=== PATIENT | male | born 1955 | race Caucasian/White ===

== ENCOUNTER 2016-08-25 05:53 | Inpatient (IN) | payer BC ==
--- NOTE | 2016-08-15 20:20 | HP ---
HISTORY AND PHYSICAL: DATE OF SURGERY/ADMISSION: 08/25/16 PROCEDURE: Right knee replacement. CHIEF COMPLAINT: Right knee pain. HISTORY OF PRESENT ILLNESS: The patient is a very pleasant 60-year-old man who presents today for a history and physical examination prior to undergoing a left total knee arthroplasty on 08/25/[address] Cristobal Mg. In brief, the patient has end-stage osteoarthritis of his right knee and has failed conservative treatment such as NSAIDs, injections, and physical therapy. He has elected to undergo a total knee replacement. PAST MEDICAL HISTORY: 1. Elevated cholesterol. 2. Hypertension. 3. Osteoarthritis. PAST SURGICAL HISTORY: 1. Laminectomy at L3-L4. 2. Vasectomy. MEDICATIONS: 1. Mobic 15 mg 1 tablet by mouth for pain. 2. Pravastatin 20 mg 1 tablet by mouth q.h.s. 3. Fish oil concentrate 1000 mg 1 tablet by mouth b.i.d. 4. Glucosamine and chondroitin 150 mg complex 1 tablet by mouth daily. 5. Aspirin 81 mg 1 tablet daily. 6. Motrin 200 mg p.o. p.r.n. 7. Losartan 50 mg p.o. q.a.m. ALLERGIES: PENICILLIN as a child causing a rash. FAMILY MEDICAL HISTORY: Mother with Parkinson's. Father with kidney cancer. No history of MIs, bleeding disorders, or DVTs in family. SOCIAL HISTORY: No tobacco use. Positive for alcohol use. Currently lives with in a ranch house with everything accessible on one floor. REVIEW OF SYSTEMS: General: Negative for fevers, chills, or night sweats. No difficulty with anesthesia. HEENT: Negative for headache, lightheadedness, or syncopal episodes. Integumentary: Negative for abrasions or lesions. No difficulty with wound healing. Cardiac: Negative for chest pain, palpitations , or edema. Positive for hypertension. Negative for MD. Pulmonary: Negative for shortness of breath, chronic cough, or COPD. GI: Negative for nausea, vomiting, constipation, diarrhea, or GERD. : Negative for nocturia, urinary frequency, or urgency. No history of UTIs or kidney problems. Musculoskeletal : Positive for right knee pain. Positive for left hip pain. Negative for intermittent back pain. Neurologic: Negative for paresthesias or numbness. No history of seizure, stroke, or epilepsy. Endocrine: Negative for diabetes or thyroid issues. Hematologic: Negative for easy bruising or anemia. No history of DVT or PE. Infectious Disease: Negative for MRSA, hepatitis C, or HIV. PHYSICAL EXAMINATION GENERAL: Well appearing, in no acute distress. Alert and oriented x3. VITAL SIGNS: Pulse in the 70s, blood pressure 128/82. Height 72 inches, weight 230 pounds. HEENT: Normocephalic, atraumatic. EOMI. PULMONARY: Lungs are clear to auscultation. No crackles, rhonchi, or wheezes. CARDIAC: Regular rate and rhythm. No murmurs, gallops, or rubs. No edema, bilateral lower extremities. ABDOMEN: Soft, nontender, nondistended. Negative CVA tenderness. NEUROLOGIC: Alert and oriented x3. Cranial nerves grossly intact. Sensation intact to light touch, bilateral lower extremities. MUSCULOSKELETAL: Posterior tibial pulses 2+ bilaterally. No edema bilaterally. No effusion noted, bilateral knees. Range of motion of right knee to 0 to 110 degrees. STUDIES: X-rays showing osteoarthritis of the right knee dated 05/28/16. Preoperative evaluation performed by Dr. Jones on 07/30/16 where the patient was cleared for surgery. IMPRESSION: Right knee osteoarthritis. PLAN: The patient is scheduled to undergo a right total knee replacement on by Dr. Cristobal Mg. He will follow up postoperatively with Dr. Mg in approximately 3 to 4 weeks' timeframe. The surgery was discussed in detail as well as the surgical risks and complication sheet, which was signed by the patient. Coumadin was sent to the patient's pharmacy for postoperative DVT management. He will call us if any questions or concerns do arise. The patient will be seen at [facility] today for repeat laboratory work, urinalysis, chest x-ray, and EKG. PONCHO RÍOS [id number]/[facility] #: [id number] ADE
[2016-08-25] MEDS ORDERED: Buffered Lidocaine 1% SYRIN* 3 ML/SYR SYRINGE INTRADERM ONE (06:00)
[2016-08-25] MEDS ORDERED: Famotidine IV* 10 MG/ML 2 ML (20 mg) IV ONE (06:00)
[2016-08-25] MEDS ORDERED: Dexamethasone IV* 4 MG/ML 1 ML (4 MG) IV SLOW PU ONE (06:00)
[2016-08-25] MEDS ORDERED: Dexamethasone IV* 4 MG/ML 1 ML (4 MG) ONE (06:10)
[2016-08-25] MEDS ORDERED: Famotidine IV* 10 MG/ML 2 ML (20 mg) ONE (06:10)
[2016-08-25] MEDS ORDERED: Clindamycin 900 MG IVPREMIX(* 900 MG/50 ML SDV IV ONE (06:10)
[2016-08-25 06:47] LABS: Hematocrit 45 % (42-52); Hemoglobin 15.1 g/dl (14.0-18.0); Mean Corpuscular HGB Conc 34 g/dl (31-36); Mean Corpuscular Hemoglobin 29 pg (27-31); Mean Corpuscular Volume 86 fL (80-94); Mean Platelet Volume 9 um3 (7.4-10.4); Red Blood Count 5.22 10^6/ul (4.0-5.4); Red Cell Distribution Width 14 % (10.5-15)
[2016-08-25] MEDS ORDERED: Midazolam* 1 MG/ML 5 ML VIAL (5 MG) ONE ×2 (07:23→07:48)
[2016-08-25] MEDS ORDERED: Propofol* 10 MG/ML 20 ML BTL IV PUSH ONE (07:23)
[2016-08-25] MEDS ORDERED: Ondansetron INJ* 2 MG/ML VIAL ONE ×2 (07:23→13:53)
[2016-08-25] MEDS ORDERED: Morphine PF AMP (0.5MG/ML)* 5 MG/10 ML AMP ONE (07:23)
[2016-08-25] MEDS ORDERED: KETAMINE HCL* 50 MG/ML 10 ML VIAL ONE (07:23)
[2016-08-25] MEDS ORDERED: Bupivacaine 0.5% SDV PF* 30 ML VIAL ONE (07:31)
[2016-08-25] MEDS ORDERED: Phenylephrine IV* 40 MCG/ML 10 ML SYRINGE ONE ×2 (07:54→07:55)
[2016-08-25] MEDS ORDERED: Phenylephrine INJ* 10 MG/ML 1 ML VIAL (10 MG) ONE (07:55)
[2016-08-25] MEDS ORDERED: Lactated Ringers 500 ml BAG* 500 ML IV PRN (08:28)
[2016-08-25] MEDS ORDERED: oxyCODONE/Acetamin 5/325 MG* TAB PO PRN ×2 (08:28)
[2016-08-25] MEDS ORDERED: Naloxone* 0.4 MG/ML 1 ML VIAL IV PRN (08:28)
[2016-08-25] MEDS ORDERED: fentaNYL* 50 MCG/ML 2 ML VIAL (100 MCG VIAL) IV PRN (08:28)
[2016-08-25] MEDS ORDERED: Nalbuphine* 20 MG/ML 1 ML VIAL IV PRN ×2 (08:28)
[2016-08-25] MEDS ORDERED: Ondansetron INJ* 2 MG/ML VIAL IV PRN (08:28)
[2016-08-25] MEDS ORDERED: Ropivacaine* 300 MG in NS 0.9% 250 ML* 240 ML EPIDURAL SCH (09:00)
[2016-08-25] MEDS ORDERED: Morphine INJ* 10 MG/ML 1 ML SYRINGE IV PRN (10:12)
[2016-08-25] MEDS ORDERED: Acetaminophen TAB* 325 MG PO PRN (10:12)
[2016-08-25] MEDS ORDERED: diPHENhydraMINE IV* 50 MG/ML 1 ml VIAL (BENADRYL) IV PRN (10:12)
[2016-08-25] MEDS ORDERED: Bisacodyl SUPP* 10 MG SUPP PR PRN (10:12)
[2016-08-25] MEDS ORDERED: LACTULOSE* 30 ML UDC PO PRN (10:12)
[2016-08-25] MEDS ORDERED: Polyethylene Glycol 3350* 17 GM PACKET PO PRN (10:12)
--- NOTE | 2016-08-25 10:53 | RAD ---
INDICATION: Total knee replacement COMPARISON: May 28, 2016 TECHNIQUE: Portable AP and crosstable lateral views were obtained. FINDINGS: There is right knee arthroplasty. Both femoral and tibial components appear well seated there are anterior skin bhavin. IMPRESSION: POSTOPERATIVE RIGHT KNEE ARTHROPLASTY
[2016-08-25] MEDS ORDERED: Nalbuphine* 20 MG/ML 1 ML VIAL ONE (12:44)
[2016-08-25] MEDS: D5W 1/2 NS 1000 ML BAG* 1,000 ML IV SCH ×2 (13:34→22:31)
[2016-08-25] MEDS ORDERED: Clindamycin 600 MG IVPREMIX(* 600 MG/50 ML SDV IV SCH (14:30)
[2016-08-25] MEDS ORDERED: Scopolamine 1.5 mg* PATCH TRANSDERM PRN (15:48)
[2016-08-25] MEDS ORDERED: DiMENhydriNATE IV* 50 MG/ML VIAL IV PUSH PRN (15:50)
[2016-08-25] MEDS: Clindamycin 600 MG IVPREMIX(* 600 MG/50 ML SDV IV SCH (16:42)
[2016-08-25] MEDS ORDERED: Warfarin TAB(*) 10 MG PO ONE (17:00)
[2016-08-25] MEDS: Docusate CAP* 100 MG PO SCH (20:15)
[2016-08-25] MEDS: Magnesium Hydroxide LIQ* 30 ML UDC PO SCH (20:17)
[2016-08-26] MEDS: Clindamycin 600 MG IVPREMIX(* 600 MG/50 ML SDV IV SCH ×2 (00:42→07:24)
--- NOTE | 2016-08-26 01:01 | OP ---
DATE OF OPERATION: 08/25/16 - ROOM #341 DATE OF : 53 SURGEON: Cristobal Mg MD RN ONCOLOGY RESEARCH: Brittany Ayala RPA ANESTHESIOLOGIST: Chris Gonzalez MD ANESTHESIA: Epidural and sedation. PRE-OP DIAGNOSIS: Osteoarthritis, right valgus knee. POST-OP DIAGNOSIS: Osteoarthritis, right valgus knee. OPERATIVE PROCEDURE: Right total knee arthroplasty. INDICATIONS: Mr. Desir is a 60-year-old male who has a long history of troubles with his right knee. He had initially been doing well with conservative treatment but has had more limitations and his 5 or 6 months ago underwent a knee arthroplasty as well. He reports he can no longer keep up with her. I discussed with him that total knee arthroplasty should work well to decrease his pain and improve his function. Risks of surgery such as infection, scar formation, stiffness, DVT, pulmonary embolism, hardware failure , and continued knee pain were some of the risks discussed. He had been declared medically optimized and wished to proceed. ESTIMATED BLOOD LOSS: Minimal. COMPLICATIONS: None. HARDWARE: Lorraine Persona, G tibia, 9 femur, 38-mm patella, 10-mm polyethylene spacer. DESCRIPTION OF PROCEDURE: The patient was brought to the OR and epidural anesthesia was placed. Rosen catheter was also placed. Tourniquet was placed over the proximal right thigh and was used during the case. The total tourniquet time would be approximately 85 minutes. Right knee was prepped and then draped. Esmarch was used to exsanguinate the leg and the tourniquet was raised. Midline incision was made beginning 3 or 4 cm above the superior pole of patella and carried downwards towards the medial side of the tibial tubercle. Incision was carried down through the skin and subcutaneous tissues. Extensor mechanism was exposed and a sharp parapatellar arthrotomy was made, quite a bit of clear yellowish joint fluid was encountered. Fat pad was sharply excised and the soft tissues were softly elevated from the medial side of the tibia. Patella had extensive wear towards the lateral side but the medial side did not have that kind of wear, measured approximately 26 mm in thickness. Initially, a 6-mm cut was taken and a secondary 4 mm cut to try and smooth out the patella and a nice patellar cut was finally obtained. Patella was then easily subluxated laterally and the knee was flexed out. Nice exposure of the distal femur was obtained. Step drill was used to open the femoral canal and an intramedullary guide was placed. Guide was adjusted until it was parallel with the epicondyles and then this was then pinned into place. This has been set at 4 degrees and I actually had expected that it would line up to take less from the lateral side and while it was, it was still a little bit more than I was expecting. Nonetheless, I trusted the instrumentation and the distal femoral cutting guide was then pinned into place. Intramedullary guide was removed. Distal femoral cut was taken and it appeared a nice cut was obtained. He was tight with flexion so the sizer was very difficult to seat. So, a decision was made to move forward to the tibia as this will give a small room to maneuver. Step drill was used to open the tibial canal and the intramedullary guide was placed. Outrigger was adjusted until it would appear to take 2 mm from the worn medial side and proximal tibial cutting guide was then pinned into place. Proximal tibial cut was taken. Great care was taken at the plunge posteriorly as I had not gotten as much of the forward delivery of the tibia as I normally do. So, I had to come back a few times to finish off the cut along the back side once the main piece had been removed. Once the piece had been removed, however, the femoral sizer was then easily seated and the size 4 just over a 9. Holes were drilled and a 9 cutting block was placed. This had to be moved upwards 2 mm so it would not notch the anterior cortex, and the anterior and posterior femoral cuts followed by the chamfer cuts were all taken. Attention was returned to the tibia. This gave better exposure so that I could finish my cut towards the postero-lateral corner as well as the posterior aspect of the tibia. Spacer block was then placed and he was perfect with a 10 block coming out in full extension and being little bit loose in flexion. Alignment pema also appeared to run perfectly along the anterior spine of the tibia. Tibial was sized and it sized nicely at a G. G was pinned into place and proximal tibial was drilled and then punched. Femur was then placed with a 9 and the stud holes were drilled and the notch cut was taken. With flexion and extension, patellar tracking was fine and the patella sized at a 38 and holes were drilled and trial was snapped into place. Patellar tracking was still perfect. Trial instrumentation was removed and the knee was copiously pulse lavaged. Cement was being prepared. Tibial followed by femur and patella were all cemented into place. Excess cement was removed and the cement was allowed to harden. He was again trialed with a 10 and had the same wonderful motion and stability. Knee was copiously pulse lavaged again and searched again for extra pieces of cement and again a few small pieces were found. 10 polyethylene was then snapped into place. Motion was again checked and it was still smooth and he came out nicely into full extension. It was stable throughout. Knee was again copiously pulse lavaged and parapatellar arthrotomy was repaired using interrupted #1 Vicryl sutures. Tourniquet was let down and no significant bleeding was encountered. Subcutaneous tissues were reapproximated with 2-0 Vicryl, skin was closed using bhavin. Sterile dressing was applied. Cryo/Cuff was also applied. The patient was then awake and stable on transfer to the recovery room. [id number]/[facility] #: [id number] ADE
[2016-08-26 05:56] LABS: Hematocrit 37 % (42-52); Hemoglobin 11.9 g/dl (14.0-18.0)
[2016-08-26] MEDS ORDERED: oxyCODONE/Acetamin 5/325 MG* TAB PO PRN (06:00)
[2016-08-26] MEDS ORDERED: Ondansetron INJ* 2 MG/ML VIAL IV PRN (06:00)
[2016-08-26] MEDS ORDERED: Ondansetron TAB* 4 MG PO PRN (06:00)
[2016-08-26 06:12] LABS: BUN/Creatinine Ratio 19.8 (8-20); EGFR African American 96.6 (>60); EGFR Non-African American 75.1 (>60); Potassium 4.3 mmol/L (3.5-5.0)
[2016-08-26] MEDS: D5W 1/2 NS 1000 ML BAG* 1,000 ML IV SCH (06:43)
[2016-08-26] MEDS: Docusate CAP* 100 MG PO SCH ×2 (07:52→23:23)
[2016-08-26] MEDS: Losartan TAB* 25 MG PO SCH (07:52)
[2016-08-26] MEDS: Vitamin THERAPEUTIC TAB PO SCH (07:52)
[2016-08-26] MEDS: oxyCODONE TAB* 5 MG TAB PO PRN ×4 (07:53→23:24)
[2016-08-26] MEDS: Magnesium Hydroxide LIQ* 30 ML UDC PO SCH ×2 (07:53→23:23)
--- NOTE | 2016-08-26 08:06 | PN ---
Progress Note - Progress Note SOAP: Subjective: []Patient seen at bedside. Doing well. Pain well managed. Denies SOB, chest pain or dizziness. No other complaints. Objective: [] Vital Signs Temp 97.9 F 08/26/16 07:29 Pulse 85 08/26/16 07:29 Resp 16 08/26/16 07:58 BP 132/74 08/26/16 07:29 Pulse Ox 100 08/26/16 07:29 Intake & Output 08/25/16 08/26/16 08/26/16 18:59 06:59 18:59 Intake Total 3690 1749 Output Total 1570 1000 Balance 2120 749 Intake: IV Fluids 3450 975 CLINDAMYCIN 900 MG 50 D5W 1/2 NS 975 LR 3400 IVPB 54 ABX - CLINDAMYCIN 54 Oral 240 720 Output: Rosen 1250 1000 Residual 20 Rosen 16 Fr 20 Emesis 300 Laboratory Results - last 24 hr 08/26/16 08/26/16 08/26/16 05:32 05:32 05:32 Hgb 11.9 L Hct 37 L INR (Anticoag Therapy) 1.08 Sodium 134 Potassium 4.3 Chloride 102 Carbon Dioxide 25 Anion Gap 7 BUN 20 Creatinine 1.01 Est GFR ( Amer) 96.6 Est GFR (Non-Af Amer) 75.1 BUN/Creatinine Ratio 19.8 Glucose 121 H Calcium 8.0 L Right knee MINGO C/D/I calf mild tenderness, no edema, Dago's negative +DF/PF right foot neuro intact distally Assessment: []s/p Right total knee arthroplasty POD#1 Plan: []PT/OT WBAT Coumadin/ SCDs
[2016-08-26] MEDS: Heparin VIAL(*) 5000 UNITS/ML VIAL (FIVE THOUSAND) SUBCUT SCH ×2 (11:12→23:25)
[2016-08-26] MEDS: oxyCODONE/Acetamin 5/325 MG* TAB PO PRN ×2 (11:12→15:25)
[2016-08-26] MEDS ORDERED: Warfarin TAB(*) 4 MG PO ONE (17:00)
[2016-08-26] MEDS: Ketorolac INJ* 30 MG/ML 1 ML VIAL IV PUSH SCH (19:40)
[2016-08-27] MEDS: Ketorolac INJ* 30 MG/ML 1 ML VIAL IV PUSH SCH (02:31)
[2016-08-27] MEDS: oxyCODONE TAB* 5 MG TAB PO PRN ×2 (04:47→12:51)
[2016-08-27 07:00] LABS: Hematocrit 34 % (42-52); Hemoglobin 11.4 g/dl (14.0-18.0)
[2016-08-27] MEDS: Docusate CAP* 100 MG PO SCH (09:07)
[2016-08-27] MEDS: Vitamin THERAPEUTIC TAB PO SCH (09:07)
[2016-08-27] MEDS: Losartan TAB* 25 MG PO SCH (09:07)
[2016-08-27] MEDS: Magnesium Hydroxide LIQ* 30 ML UDC PO SCH (09:07)
[2016-08-27] MEDS: oxyCODONE/Acetamin 5/325 MG* TAB PO PRN (09:07)
[2016-08-27] MEDS: Heparin VIAL(*) 5000 UNITS/ML VIAL (FIVE THOUSAND) SUBCUT SCH (09:09)
--- NOTE | 2016-08-27 11:36 | PN ---
Progress Note - Progress Note Note: Patient was seen this am by Dr. Mg. He is doing very well and has mastered his PT goals and would like to go home today. OK with Dr. Mg. s/p RTK arthroplasty POD#2 Discharge home on Coumadin, has Percocet rx at home, INR draw tomorrow. Shower in 2 days Home health nurse to remove bhavin about 2 weeks post op
[2016-08-27 12:54] VITALS: BP 145/87
--- NOTE | 2016-08-28 03:57 | DS ---
DISCHARGE SUMMARY: DATE OF ADMISSION: 08/25/16 DATE OF DISCHARGE: 08/27/16 ATTENDING PHYSICIAN: Cristobal Mg MD ADMISSION DIAGNOSIS: Degenerative arthritis, right knee. DISCHARGE DIAGNOSIS: Degenerative arthritis, right knee. PROCEDURES PERFORMED: Right total knee arthroplasty. HOSPITAL COURSE: The patient is a pleasant 60-year-old male who suffered with knee pain for quite some time due to end-stage osteoarthritis. He failed conservative management including anti-inflammatories, injections and physical therapy and elected to proceed with surgical intervention. He was taken to the operating room under the care of Dr. Cristobal Mg on the date of 08/25/16 and tolerated the procedure well. Postoperatively, he left the operating room in stable condition. He progressed satisfactorily on the floor, bearing weight as tolerated on the right lower extremity. He had no postoperative complications. In fact, he was deemed to be safe by physical therapy on postoperative day #2 and was stable orthopedically for discharge to home. PHYSICAL EXAMINATION: The patient's incision benign. Calf soft and nontender. His neurovascular status is intact. Homans' sign negative in the right lower extremity. He is ambulating independently with his walker. PLAN: The patient will be discharged to home on 08/27/16 bearing weight as tolerated on the right lower extremity. He may shower in two days. We recommend he not bathe, soak the knee in hot tub or swimming pool water. He will be seen by a home health nurse in roughly two weeks for which bhavin will be removed. He may apply dry dressing and Natalio wrap as needed. The patient states he has pain medication prescription already at home. We recommend he continue with Coumadin 2 mg or recommended for him to take today, 08/27/16. He will have an INR blood draw on 08/28/16 with further Coumadin doses to be recommended from the office. He will follow up in roughly one month with Dr. Mg in the office. If he has any noted increased pain, redness, drainage, calf pain or swelling, fever or chills, the office will be contacted prior to his scheduled followup. PONCHO MARMOLEJO [id number]/[facility] #: [id number] ADE
[2016-08-28] MEDS ORDERED: Scopolomine PATCH Remove* 1 NOTE MISC PATCH OFF SCH (16:00)
== END 2016-08-27 15:30 | disposition home health service (06) | DRG 302 ==
LOC: AA 05:53 → SSU 10:12 → UNDODISIN 08-27 15:10
PROVIDERS: ADMIT Orthopaedic Surgery; ATTEND Orthopaedic Surgery
PROC: 0SRC0J9 Replacement of Right Knee Joint with Synthetic Substitute, Cemented, Open Approach (ICD-10-PCS; principal; 2016-08-25 07:30)
DX: M17.11 Unilateral primary osteoarthritis, right knee (principal); I10 Essential (primary) hypertension; E78.00 Pure hypercholesterolemia, unspecified; Z88.0 Allergy status to penicillin; Z81.8 Family history of other mental and behavioral disorders; Z80.51 Family history of malignant neoplasm of kidney; M21.061 Valgus deformity, not elsewhere classified, right knee; E66.9 Obesity, unspecified; Z68.34 Body mass index [BMI] 34.0-34.9, adult
CPT/HCPCS: 36415; 62327; 80048; 85014; 85018; 85027; 85610; 88305; 88311; 94760; A9270-GY; C1776; J1100; J1200; J1240; J1644; J1885; J2250; J2270; J2300; J2405; J2704; J2795

== ENCOUNTER 2016-12-01 10:25 | Inpatient (IN) | payer BC ==
[~2016-12-01 10:25] MED LIST: Buffered Lidocaine 0.9% SYRIN* 5 ML/SYR SYRINGE INTRADERM ONE; Gabapentin CAP(*) 400 MG PO ONE; Sodium Citrate/Citric Acid* 15 ML UDC PO ONE; celeCOXIB CAP* 200 MG PO ONE
[2016-12-01] MEDS ORDERED: Gabapentin CAP(*) 300 MG ONE (10:28)
[2016-12-01] MEDS ORDERED: celeCOXIB CAP* 100 MG ONE (10:28)
[2016-12-01] MEDS ORDERED: Sodium Citrate/Citric Acid* 15 ML UDC ONE (10:28)
[2016-12-01] MEDS ORDERED: Clindamycin 900 MG IVPREMIX(* 900 MG/50 ML SDV IV ONE (10:29)
[2016-12-01] MEDS ORDERED: Buffered Lidocaine 0.9% SYRIN* 5 ML/SYR SYRINGE ONE (10:29)
[2016-12-01] MEDS ORDERED: fentaNYL* 50 MCG/ML 2 ML VIAL (100 MCG VIAL) ONE (13:02)
[2016-12-01] MEDS ORDERED: Midazolam* 1 MG/ML 5 ML VIAL (5 MG) ONE ×2 (13:02→13:57)
[2016-12-01] MEDS ORDERED: Morphine PF AMP (0.5MG/ML)* 5 MG/10 ML AMP ONE (13:04)
[2016-12-01] MEDS ORDERED: Bupivacaine 0.5% SDV PF* 30 ML VIAL ONE (13:15)
[2016-12-01] MEDS ORDERED: oxyCODONE TAB* 5 MG TAB PO PRN ×2 (13:56→15:36)
[2016-12-01] MEDS ORDERED: DiMENhydriNATE IV* 50 MG/ML VIAL IV PUSH PRN (13:56)
[2016-12-01] MEDS ORDERED: Ondansetron INJ* 2 MG/ML VIAL IV PRN ×2 (13:56→15:36)
[2016-12-01] MEDS ORDERED: Naloxone* 0.4 MG/ML 1 ML VIAL IV PRN (13:56)
[2016-12-01] MEDS ORDERED: Nalbuphine* 20 MG/ML 1 ML VIAL IV PRN (13:56)
[2016-12-01] MEDS ORDERED: fentaNYL* 50 MCG/ML 2 ML VIAL (100 MCG VIAL) IV PRN (13:59)
[2016-12-01] MEDS ORDERED: Ibuprofen TAB* 800 MG PO SCH (14:00)
[2016-12-01] MEDS ORDERED: Bisacodyl SUPP* 10 MG SUPP PR PRN (15:36)
[2016-12-01] MEDS ORDERED: Magnesium Hydroxide LIQ* 30 ML UDC PO PRN (15:36)
[2016-12-01] MEDS ORDERED: Morphine INJ* 2 MG/ML 1 ML SYRINGE IV PRN (15:36)
[2016-12-01] MEDS ORDERED: oxyCODONE/Acetamin 5/325 MG* TAB PO PRN (15:36)
[2016-12-01] MEDS ORDERED: diPHENhydraMINE IV* 50 MG/ML 1 ml VIAL (BENADRYL) IV PRN (15:36)
--- NOTE | 2016-12-01 16:36 | RAD ---
INDICATION: Status post total left hip replacement surgery. COMPARISON: Comparison is made with a prior x-ray study of the left hip from October 31, 2016. TECHNIQUE: An AP view of the pelvis was obtained. FINDINGS: The patient is status post total left hip replacement surgery. The bones and prostheses are in normal alignment. There is a small amount of air within the soft tissues adjacent to the left hip consistent with the patient's recent surgery. IMPRESSION: STATUS POST TOTAL LEFT HIP REPLACEMENT SURGERY.
[2016-12-01] MEDS ORDERED: Warfarin TAB(*) 10 MG PO ONE ×2 (17:00→20:30)
[2016-12-01] MEDS: ceFAZolin VIAL(*) 1 GM in NS 0.9% 50 ML* 50 ML IVPB SCH ×3 (17:38→20:32)
[2016-12-01] MEDS ORDERED: Ondansetron INJ* 2 MG/ML VIAL ONE (17:42)
[2016-12-01] MEDS: Ibuprofen TAB* 800 MG PO SCH ×2 (18:10→23:48)
[2016-12-01] MEDS: Docusate CAP* 100 MG PO SCH (20:51)
[2016-12-02] MEDS: ceFAZolin VIAL(*) 1 GM in NS 0.9% 50 ML* 50 ML IVPB SCH ×2 (03:51→11:51)
--- NOTE | 2016-12-02 04:30 | OP ---
DATE OF OPERATION: 12/01/16 - ROOM #342 DATE OF : 53 SURGEON: Cristobal Mg MD NET ARCHITECT: PONCHO Dunbar ANESTHESIOLOGIST: Cristobal Lyons MD ANESTHESIA: Spinal and sedation. PRE-OP DIAGNOSIS: Osteoarthritis, left hip. POST-OP DIAGNOSIS: Osteoarthritis, left hip. OPERATIVE PROCEDURE: Left total hip arthroplasty. ESTIMATED BLOOD LOSS: 200 cc. COMPLICATIONS: None. HARDWARE: Lorraine M/L taper 12.5 stem, 54-mm Continuum cup, 2 screws, 15-degree elevated vitamin E impregnated liner, -3.5 mm, 36-mm head. INDICATIONS: Mr. Desir is a 61-year-old male who several months ago underwent a right total knee arthroplasty. He had done well, but had complained of left hip pain and while working the right knee, had complained about even more left hip pain. X-rays were taken which found significant arthritic changes in the left hip where he was [id number] with considerable sclerosis and spur formation. We did discuss conservative treatment consisting of an injection; but, considering that he still would need a hip replacement, he reported he would like to get all of this done and out of the way so that he could truly rehab the knee and the hip. Risks of surgery such as infection, scar formation , stiffness, DVT, pulmonary embolism, hardware failure, leg length discrepancy, and instability were some of the risks discussed. He had been declared medically optimized and wished to proceed. DESCRIPTION OF PROCEDURE: The patient was brought to the OR and spinal anesthesia was introduced. Rosen catheter was placed. Spinal had been introduced with him already lying in the right lateral decubitus position and posts were then placed, and he reported he was much more comfortable before the axillary roll was placed. Roll was adjusted, but was removed towards the end of the case as he had continued to complain about the roll more than the positioning. Left hip area was prepped and then draped. Incision was made centered over the greater trochanter extending proximally and distally for about 6 to 7 cm. Incision was carried down through the skin and subcutaneous fat. Small bleeders encountered were ligated using electrocautery. Fascia was exposed and sharply incised. He was well muscled and muscle underneath was bluntly split using finger dissection. Bursa over the greater trochanter was taken down using electrocautery and with palpation, I could feel the gluteus medius/gluteus minimus and a Hohmann was placed underneath him and with retraction, nice exposure of the piriformis was obtained. He was a bit tight, especially in extension where he appeared to be developing a bit of a flexion contracture, but with internal rotation and adduction, short external rotators were released from their attachment on the back side of the greater trochanter and capsule was also incised this way as well. Small T-capsulotomy was made and a small burst of clear yellowish joint fluid was encountered. Capsulotomy was extended just a little bit and then the hip was easily dislocated. Cutting guide was placed and the femoral neck was marked. Femoral head was then resected. Anterior C-retractor was then placed as was an inferior broad Hohmann and good exposure of the acetabulum was obtained. He had quite redundant labrum and I had taken down capsule really very nicely, so I had a flap of capsule that I had to watch because it would want to draw itself in with placing the reamers. Labrum was sharply resected and reaming was begun. He was more expanded as I did not want to medialize much based on templating and I had templated him for 56. At 53, I seemed to have a nice [id number] fit with bleeding bone, so a 54 cup was called for. Cup was impacted into place and a nice solid bite was obtained. Two screws were placed and a wonderful bite was obtained with the screws as well. Trial liner was placed and attention was turned to the proximal femur. Box osteotome was used to open the femoral canal and the canal finder was easily passed. Beginning with a 5 broach, he was first lateralized a little bit and then progressively broached. At the 11, it seemed as if I had a fairly tight fit and he was calcar planed to smooth out the femoral neck cut. He was trialed with a 0 and seemed a little bit tight and long. With taking the hip out, the 11 was just a little bit loose and he was upsized to a 12.5. The 12.5 had a nice fit. This was then trialed with a - 3.5 head and his leg length appeared just about equal or perhaps a tiny bit long. His stability with an elevated liner was really quite good where he could be internally rotated past 75 degrees before he started to lever out. In full adduction, he similarly did not lever out until about that 75-degree tashia. He was still tight in extension, but I was able to get him into full extension and 45 degrees of external rotation, and he was nice and stable in that position as well. Broach was removed and had not loosened. Elevated liner was impacted into place. 12.5 M/L taper was also impacted into place. A -3.5 mm , 36 mm head was also impacted and hip was relocated. Hip was copiously pulse lavaged. Capsule and short external rotators were repaired together to the posterior aspect of the greater trochanter. Fascia was repaired using interrupted #1 Vicryl sutures. Hip again was copiously lavaged. Subcutaneous tissues were approximated with 2-0 Vicryl and skin was closed using bhavin. Sterile dressing was applied in the OR. The patient was then rolled on to the hospital bed, and was stable on transfer to the recovery room. [id number]/[facility] #: [id number] MTDD
[2016-12-02] MEDS: oxyCODONE/Acetamin 5/325 MG* TAB PO PRN (05:54)
[2016-12-02 06:22] LABS: Hematocrit 37 % (42-52); Hemoglobin 12.5 g/dl (14.0-18.0)
[2016-12-02 06:43] LABS: BUN/Creatinine Ratio 20.8 (8-20); Calcium 8.2 mg/dL (8.6-10.3); EGFR African American 102.1 (>60); EGFR Non-African American 79.4 (>60); Potassium 4.2 mmol/L (3.5-5.0)
[2016-12-02] MEDS: Losartan TAB* 25 MG PO SCH (08:17)
[2016-12-02] MEDS: Vitamin THERAPEUTIC TAB PO SCH (08:17)
[2016-12-02] MEDS: Docusate CAP* 100 MG PO SCH ×2 (08:17→20:15)
--- NOTE | 2016-12-02 09:36 | PN ---
Progress Note - Progress Note SOAP: Subjective: []Patient seen OOB in chair. Doing well overall. Feels a little "foggy" from pain meds but denies dizziness, CP or SOB. Therapy reports he did very well and can probably go home tomorrow if he continues to do well. Objective: [] Vital Signs Temp 98.3 F 12/02/16 07:26 Pulse 85 12/02/16 07:26 Resp 16 12/02/16 08:53 BP 115/69 12/02/16 07:26 Pulse Ox 95 12/02/16 08:53 Intake & Output 12/01/16 12/02/16 12/02/16 18:59 06:59 18:59 Intake Total 1250 1111 320 Output Total 400 550 Balance 850 561 320 Weight 245 lb Intake: IV Fluids 1250 511 900MG CLINDAMYCIN 50 ABX - CEFAZOLIN 55 LR 456 lr 1200 Oral 600 320 Output: Rosen 200 550 Estimated Blood Loss 200 Other: # Bowel Movements 0 Laboratory Results - last 24 hr 12/02/16 12/02/16 12/02/16 05:52 05:52 05:52 Hgb 12.5 L Hct 37 L INR (Anticoag Therapy) 0.99 Sodium 136 Potassium 4.2 Chloride 104 Carbon Dioxide 26 Anion Gap 6 BUN 20 Creatinine 0.96 Est GFR ( Amer) 102.1 Est GFR (Non-Af Amer) 79.4 BUN/Creatinine Ratio 20.8 H Glucose 136 H Calcium 8.2 L Left hip dressing reportedly dry, has boxer shorts on calf NT and soft +DF/PF left ankle sensation intact distally Assessment: []s/p Left total hip arthroplasty POD #1 Plan: []PT/OT WBAT LLE Coumadin w heparin bridge - 10 mg today Home in 1 -2 days
[2016-12-02] MEDS: Acetaminophen TAB* 325 MG PO PRN ×3 (10:06→20:15)
[2016-12-02] MEDS: Heparin VIAL(*) 5000 UNITS/ML VIAL (FIVE THOUSAND) SUBCUT SCH ×2 (10:42→20:16)
[2016-12-02] MEDS ORDERED: Warfarin TAB(*) 10 MG PO ONE (17:00)
[2016-12-03] MEDS: oxyCODONE/Acetamin 5/325 MG* TAB PO PRN ×2 (03:46→07:52)
[2016-12-03 06:16] LABS: Hematocrit 37 % (42-52); Hemoglobin 12.1 g/dl (14.0-18.0)
[2016-12-03 07:41] VITALS: BP 131/72
[2016-12-03] MEDS: Docusate CAP* 100 MG PO SCH (09:17)
[2016-12-03] MEDS: Vitamin THERAPEUTIC TAB PO SCH (09:17)
[2016-12-03] MEDS: Losartan TAB* 25 MG PO SCH (09:17)
[2016-12-03] MEDS: Warfarin TAB(*) 4 MG PO ONE ×2 (11:12→11:13)
--- NOTE | 2016-12-03 16:29 | DS ---
DISCHARGE SUMMARY: DATE OF ADMISSION: 12/01/16 DATE OF DISCHARGE: 12/03/16 ATTENDING PHYSICIAN: Cristobal Mg MD (DICTATED BY PONCHO MARMOLEJO) ADMISSION DIAGNOSIS: Osteoarthritis left hip. DISCHARGE DIAGNOSIS: Osteoarthritis left hip. SURGERY PERFORMED: Left total hip arthroplasty. HOSPITAL COURSE: The patient is a 61-year-old male who underwent a right total knee arthroplasty several months ago and had done well, but continued to complain of left hip pain which was debilitating. His x-rays revealed significant arthritic changes with [id number] formation and spur formation. He declined conservative management for the hip and elected to proceed with surgical intervention. He was taken to the operating room under the care of Dr. Cristobal Mg on the date of 12/01/16 for the aforementioned procedure. He tolerated the procedure well and left the operating room in stable condition. Postoperatively, he progressed excellently with his physical therapy and occupational therapy goals. He was ambulating independently with a walker on postoperative day #1 and had no postoperative complications. It was felt he was stable medically and orthopedically for discharge to home on the date of 12/03/16. CONDITION ON DISCHARGE: He is afebrile, vital signs are stable. His incision is healing without evidence of infection. His calf is nontender and soft. His neurovascular status is intact. PLAN: Discharged to home. Continue to bear weight as tolerated on the left lower extremity. He will continue with his physical therapy exercises as instructed and maintain hip precautions. He will take 4 mg of Coumadin today, 12/03/16, and will have a blood draw on 12/04/16 with dosages to follow from the office. He will continue with Colace and Percocet as well. He will follow up with Dr. Mg in roughly 3 weeks and will call the office with any notable increased right hip pain, drainage, calf pain, swelling, shortness of breath, chest pain. PONCHO MARMOLEJO [id number]/[facility] #: [id number] MTDD
== END 2016-12-03 12:05 | disposition home health service (06) | DRG 301 ==
LOC: AA 10:25 → SSU 17:26
PROVIDERS: ADMIT Orthopaedic Surgery; ATTEND Orthopaedic Surgery
PROC: 0SRB02Z Replacement of Left Hip Joint with Metal on Polyethylene Synthetic Substitute, Open Approach (ICD-10-PCS; principal; 2016-12-01 12:00)
DX: M16.12 Unilateral primary osteoarthritis, left hip (principal); I10 Essential (primary) hypertension; Z96.651 Presence of right artificial knee joint; Z88.0 Allergy status to penicillin; E78.00 Pure hypercholesterolemia, unspecified
CPT/HCPCS: 36415; 72170; 80048; 85014; 85018; 85610; A9270-GY; C1713; C1776; J0690; J1644; J2250; J2405; J3010

== ENCOUNTER 2023-06-09 11:37 | Inpatient (IN) ==
[~2023-06-09 11:37] MED LIST changes: -Buffered Lidocaine 0.9% SYRIN* 5 ML/SYR SYRINGE INTRADERM ONE; +Buffered Lidocaine 1% SYRIN 1 ml INTRADERM ONE; +Famotidine IV 10 MG/ML 2 ml VIAL (20 mg) IV ONE; -Gabapentin CAP(*) 400 MG PO ONE; +Lactated Ringers 1000 ml BAG 1,000 ML IV SCH; -Sodium Citrate/Citric Acid* 15 ML UDC PO ONE; -celeCOXIB CAP* 200 MG PO ONE
[2023-06-09] MEDS ORDERED: ceFAZolin 2 GM PREMIX 2 GM/50 ML BAG ONE (12:08)
[2023-06-09] MEDS ORDERED: Tranexamic Acid 1 GM/100ML BAG 2,000 MG/200 ML BAG IV ONE (12:09)
[2023-06-09] MEDS ORDERED: Famotidine IV 10 MG/ML 2 ml VIAL (20 mg) ONE (12:10)
[2023-06-09 12:26] LABS: Rapid COVID-19 Molecular Undetected (Undetected)
[2023-06-09] MEDS ORDERED: Ondansetron 4 mg VIAL 2 MG/ML 2 ml VIAL IV PRN ×2 (14:10→17:01)
[2023-06-09] MEDS ORDERED: Naloxone 0.4 mg VIAL 0.4 mg/ml 1 ml VIAL IV PRN (14:10)
[2023-06-09] MEDS ORDERED: fentaNYL 100 mcg/2 ml 50 MCG/ML VIAL IV PRN (14:10)
[2023-06-09] MEDS ORDERED: fentaNYL 100 mcg/2 ml 50 MCG/ML VIAL ONE (14:19)
[2023-06-09] MEDS ORDERED: Midazolam 2 mg/2 ml VIAL 1 mg/ml 2 ml VIAL (2 mg) ONE ×3 (14:19→15:37)
[2023-06-09] MEDS ORDERED: ROPIVACAINE 5 MG/ML 30 ML BTL (0.5%) ONE ×2 (14:21)
[2023-06-09] MEDS ORDERED: Lidocaine 2% PF 5 ML VIAL ONE (14:46)
[2023-06-09] MEDS ORDERED: Dexamethasone IV 4 MG/ML VIAL 1 ml VIAL ONE (15:36)
[2023-06-09] MEDS ORDERED: Ondansetron ODT 4 mg TAB 4 MG TAB PO PRN (17:01)
[2023-06-09] MEDS ORDERED: Magnesium Hydroxide LIQ 30 ML UDC PO PRN (17:01)
[2023-06-09] MEDS ORDERED: Lactulose 30 ml UDC PO PRN (17:01)
[2023-06-09] MEDS ORDERED: Morphine 2 MG/ML SYRINGE IV PRN (17:01)
[2023-06-09] MEDS ORDERED: Lactated Ringers 1000 ml BAG 1,000 ML IV SCH (18:00)
[2023-06-09] MEDS: Magnesium Hydroxide LIQ 30 ML UDC PO SCH (22:22)
[2023-06-09] MEDS: ceFAZolin 1 GM ADVAN 1 GM in NS 0.9% 50 ML 50 ML IVPB SCH (23:54)
[2023-06-10 06:15] LABS: Platelet Count 231 10^3/uL (150-450)
[2023-06-10 06:35] LABS: Calcium 8.9 mg/dL (8.6-10.3); Creatinine, Serum 1.25 mg/dL (0.67-1.17); Potassium 3.9 mmol/L (3.5-5.0); eGFR CKD-EPI 62.7 (>60)
[2023-06-10 07:03] LABS: Hematocrit 43.2 % (38-53); Hemoglobin 14.4 g/dL (13.2-16.3); Mean Platelet Volume 8.2 fL (7.5-11.2)
[2023-06-10] MEDS: ceFAZolin 1 GM ADVAN 1 GM in NS 0.9% 50 ML 50 ML IVPB SCH (07:59)
[2023-06-10] MEDS: Magnesium Hydroxide LIQ 30 ML UDC PO SCH (08:02)
[2023-06-10] MEDS ORDERED: Vitamin THERAPEUTIC TAB PO SCH (09:00)
[2023-06-10 14:49] VITALS: BP 145/84
[2023-06-10] MEDS ORDERED: CMC:Pravastatin 20 mg TAB (NF) PO SCH (17:00)
== END 2023-06-10 16:00 | disposition home or self-care (01) | DRG 470 ==
LOC: AA 11:37 → SSU 20:37
PROVIDERS: ADMIT Orthopaedic Surgery Adult Reconstructive Orthopaedic Surgery; ATTEND Orthopaedic Surgery Adult Reconstructive Orthopaedic Surgery